=== PATIENT | male | born 1950 | race African-American/Black ===

== ENCOUNTER 2017-06-26 18:38 | Observation (INO) | payer OTHER, MEDICARE ==
[2017-06-26] MEDS ORDERED: ASPIRIN 81 MG TABLET, CHEWABLE PO ONE (18:53)
[2017-06-26 19:04] LABS: ABSOLUTE BASOPHILS # (AUTO) 0.1 10^3/uL (0.0-0.2); ABSOLUTE EOSINOPHILS # (AUTO) 0.1 10^3/uL (0.0-0.6); ABSOLUTE LYMPHOCYTES (AUTO) 4.3 10^3/uL (0.5-4.7); ABSOLUTE NEUT (AUTO) 5.5 10^3/uL (1.7-8.2); BASOPHILS % (AUTO) 0.5 % (0-2); EOSINOPHILS % (AUTO) 0.8 % (0-6); HEMATOCRIT 47.6 % (37.9-51.0); HEMOGLOBIN 15.6 g/dL (13.5-17.0); LYMPHOCYTES % (AUTO) 39.4 % (13-45); MEAN CORPUSCULAR HEMOGLOBIN 27.5 pg (27.0-33.4); MEAN CORPUSCULAR HGB CONC 32.7 g/dL (32.0-36.0); MEAN CORPUSCULAR VOLUME 84 fl (80-97); MONOCYTES % (AUTO) 8.7 % (3-13); PLATELET COUNT 227 10^3/uL (150-450); RED BLOOD COUNT 5.68 10^6/uL (4.35-5.55); RED CELL DISTRIBUTION WIDTH 15.6 % (11.5-14.0); SEGMENTED NEUTROPHILS % (AUTO) 50.6 % (42-78); TOTAL CELLS COUNTED % (AUTO) 100 %
[2017-06-26] MEDS ORDERED: DEXTROSE 5%-WATER 250 ML with NITROPRUSSIDE SODIUM 50 MG IV PRN ×2 (19:16)
[2017-06-26] MEDS ORDERED: ONDANSETRON HCL INJ/PF 4 MG/2 ML SDV IV ONE (19:16)
[2017-06-26] MEDS ORDERED: HYDRALAZINE HCL INJ/PF 20 MG/1 ML SDV IV ONE (19:16)
--- NOTE | 2017-06-26 19:16 | ER Document Report ---
ED General - General Mode of Arrival: Ambulatory Information source: Patient TRAVEL OUTSIDE OF THE [place] IN LAST 30 DAYS: No <MARCO AREVALO - Last Filed: 06/27/17 03:12> <ADARSH DAILEY - Last Filed: 06/27/17 03:39> - General Chief Complaint: High Blood Pressure Stated Complaint: VOMITING Time Seen by Provider: 06/26/17 19:03 Notes: Patient is a 66-year-old male who presents to the emergency department via EMS today with complaints of being lethargic and hypertensive on arrival according to EMS. Patient was given 10 mg of labetalol prior to arrival by EMS. EMS reports recent changes to the patients blood pressure medications. (MARCO AREVALO) - Related Data Allergies/Adverse Reactions: No Known Allergies Allergy (Verified 06/26/17 18:54) Past Medical History - General Information source: Patient - Social History Smoking Status: Unknown if Ever Smoked Cigarette use (# per day): No Frequency of alcohol use: None Drug Abuse: None Lives with: Family Family History: Reviewed & Not Pertinent Patient has suicidal ideation: No Patient has homicidal ideation: No - Past Medical History Cardiac Medical History: Reports: Hx Hypertension Surgical Hx: Negative <MARCO AREVALO - Last Filed: 06/27/17 03:12> Review of Systems - Review of Systems Constitutional: See HPI, Other - lethargic EENT: No symptoms reported Cardiovascular: See HPI, Other - hypertensive, recent blood pressure medicine changes Respiratory: No symptoms reported Gastrointestinal: No symptoms reported Genitourinary: No symptoms reported Male Genitourinary: No symptoms reported Musculoskeletal: No symptoms reported Skin: No symptoms reported Hematologic/Lymphatic: No symptoms reported Neurological/Psychological: No symptoms reported -: Yes All other systems reviewed and negative <MARCO AREVALO - Last Filed: 06/27/17 03:12> <ADARSH DAILEY - Last Filed: 06/27/17 03:39> - Review of Systems Notes: given by EMS (MARCO AREVALO) Physical Exam <MARCO AREVALO - Last Filed: 06/27/17 03:12> <ADARSH DAILEY - Last Filed: 06/27/17 03:39> - Vital signs Vitals: Resp Pulse Ox 18 92 06/26/17 18:44 06/26/17 18:44 - Notes Notes: Physical Exam: General: Drowsy but arousable. HEENT: Normocephalic. Atraumatic. PERRL. Extraocular movements intact. Oropharynx clear. Neck: Supple. Non-tender. Respiratory: No respiratory distress. Clear and equal breath sounds bilaterally. Cardiovascular: Regular rate and rhythm. Abdominal: Obese. Epigastric tenderness with palpation. No distension. Normal Bowel Sounds. Back: Non-tender. No deformity or step off. Extremities: Moves all four extremities. Upper extremities: Normal inspection. Normal ROM. Lower extremities: Normal inspection. No edema. Normal ROM. Skin: Warm. Dry. Normal color. (MARCO AREVALO) Course - Laboratory Result Diagrams: 06/26/17 18:43 06/26/17 18:43 <MARCO AREVALO - Last Filed: 06/27/17 03:12> - Laboratory Result Diagrams: 06/26/17 18:43 06/26/17 18:43 - Diagnostic Test Radiology reviewed: Image reviewed, Reports reviewed <ADARSH DAILEY - Last Filed: 06/27/17 03:39> - Re-evaluation Re-evalutation: 06/27/17 19:05 Left gaze after returning from CT 06/27/17 19:15 Mentation improving with Nicardipine 06/26/17 20:15 Answering questions, returned to cognitive baseline 06/27/17 20:43 Accepted for admission (MARCO AREVALO) Patient is a 66-year-old male who is brought in for being lethargic. Patient's blood pressure is 200s over 100s. Patient was given labetalol by EMS in route with no effect on his blood pressure. Patient is drowsy and mumbling in the room. Head CT with no acute findings. Patient was started on nicardipine drip. He was nauseated but that is resolving after Zofran and lowering his blood pressure. No acute evidence for dissection or aneurysm. MRI with no evidence for stroke. Blood work within normal limits. Patient is back to his neurologic baseline after getting his blood pressure under control. Symptoms are consistent with hypertensive encephalopathy. Patient was discussed with family in the hospital service. He will be admitted for continued management of his blood pressure. They are agreeable to this plan. Stable at the time of admission. (ADARSH DAILEY) - Vital Signs Vital signs: Temp Pulse Resp BP Pulse Ox 98 F 78 15 153/79 H 94 06/26/17 19:01 06/27/17 00:24 06/27/17 02:16 06/27/17 02:16 06/27/17 02:16 - Laboratory Laboratory results interpreted by me: 06/26/17 06/26/17 06/26/17 18:43 18:43 18:43 WBC 11.0 H RBC 5.68 H RDW 15.6 H Glucose 160 H POC Glucose Hemoglobin A1c % Lactic Acid Direct Bilirubin 0.5 H ALT 74 H Creatine Kinase 244 H TSH 0.15 L 06/26/17 06/26/17 06/26/17 18:43 18:49 22:11 WBC RBC RDW Glucose POC Glucose 136 H Hemoglobin A1c % 6.7 H Lactic Acid 3.0 H Direct Bilirubin ALT Creatine Kinase TSH Critical Care Note - Critical Care Note Total time excluding time spent on procedures (mins): 120 - Evaluation and management of altered mental status, management of hypertensive emergency/ encephalopathy, multiple re-evaluations, coordination of admission, counseling of patient and family <ADARSH DAILEY - Last Filed: 06/27/17 03:39> Discharge <MARCO AREVALO - Last Filed: 06/27/17 03:12> - Discharge Admitting Provider: [facility] Admitted: ICU <ADARSH DAILEY - Last Filed: 06/27/17 03:39> - Discharge Clinical Impression: Hypertensive encephalopathy Condition: Stable Disposition: ADMITTED INPATIENT Scribe Attestation: 06/27/17 03:38 I personally performed the services described in the documentation, reviewed and edited the documentation which was dictated to the scribe in my presence, and it accurately records my words and actions. (ADARSH DAILEY) Scribe Documentation - Scribe Written by Yareli:: Yareli Figueroa, 06/26/2017 2217 acting as scribe for :: Laurie <MARCO AREVALO - Last Filed: 06/27/17 03:12>
[2017-06-26] MEDS ORDERED: LABETALOL HCL INJ 20 MG/4 ML DISP.SYRIN IV ONE (19:18)
[2017-06-26] MEDS ORDERED: NICARDIPINE HCL RTU, ISO-OS 20 MG/200 ML RTUINJ IV PRN (19:18)
[2017-06-26 19:26] LABS: ALANINE AMINOTRANSFERASE 74 U/L (21-72); ALBUMIN 4.3 g/dL (3.5-5.0); ALKALINE PHOSPHATASE 101 U/L (38-126); ANION GAP 10 (5-19); ASPARTATE AMINO TRANSFERASE 56 U/L (17-59); BILIRUBIN,DIRECT 0.5 mg/dL (0.0-0.4); BILIRUBIN,TOTAL 0.5 mg/dL (0.2-1.3); BLOOD UREA NITROGEN 19 mg/dL (7-20); CALCIUM 9.5 mg/dL (8.4-10.2); CARBON DIOXIDE 24 mmol/L (22-30); CHLORIDE 107 mmol/L (98-107); CREATINE KINASE 244 U/L (55-170); GLUCOSE 160 mg/dL (75-110); POTASSIUM 3.9 mmol/L (3.6-5.0); SODIUM 140.5 mmol/L (137-145); TOTAL PROTEIN 7.9 g/dL (6.3-8.2)
--- NOTE | 2017-06-26 19:36 | RADIOLOGY REPORT (SQ) ---
EXAM DESCRIPTION: CT HEAD WITHOUT COMPLETED DATE/TIME: 06/26/2017 7:08 pm REASON FOR STUDY: AMS COMPARISON: None. TECHNIQUE: Axial images acquired through the brain without intravenous contrast. Images reviewed wi th bone, brain and subdural windows. Images stored on PACS. All CT scanners at this facility use dose modulation, iterative reconstruction, and/or weight based d osing when appropriate to reduce radiation dose to as low as reasonably achievable (ALARA). [facility]: Dose Right [facility]: CareDose [facility]: Dose Right [facility]: Teradose 4D [facility]: [employer] RADIATION DOSE: CT Rad equipment meets quality standard of care and radiation dose reduction techniq ues were employed. CTDIvol: 64.6 mGy. DLP: 1034 mGy-cm. mGy. LIMITATIONS: None. FINDINGS: VENTRICLES: Normal size and contour. CEREBRUM: No masses. No hemorrhage. No midline shift. No evidence for acute infarction. Normal gra y/white matter differentiation. No areas of low density in the white matter. CEREBELLUM: No masses. No hemorrhage. No alteration of density. No evidence for acute infarction. EXTRAAXIAL SPACES: No fluid collections. No masses. ORBITS AND GLOBE: No intra- or extraconal masses. Normal contour of globe without masses. CALVARIUM: No fracture. PARANASAL SINUSES: No fluid or mucosal thickening. SOFT TISSUES: No mass or hematoma. OTHER: No other significant finding. IMPRESSION: NORMAL BRAIN CT WITHOUT CONTRAST. EVIDENCE OF ACUTE STROKE: NO. COMMENT: Quality ID # 436: Final reports with documentation of one or more dose reduction techniques (e.g., Automated exposure control, adjustment of the mA and/or kV according to patient size, use of iterative reconstruction technique) TECHNICAL DOCUMENTATION: JOB ID: [id number] [employer]- All Rights Reserved Reading location - IP/workstation name: [email or web address]
--- NOTE | 2017-06-26 19:37 | RADIOLOGY REPORT (SQ) ---
EXAM DESCRIPTION: CHEST SINGLE VIEW COMPLETED DATE/TIME: 06/26/2017 7:15 pm REASON FOR STUDY: HTN COMPARISON: 06/26/2017 EXAM PARAMETERS: NUMBER OF VIEWS: One view. TECHNIQUE: Single frontal radiographic view of the chest acquired. RADIATION DOSE: NA LIMITATIONS: None. FINDINGS: LUNGS AND PLEURA: Low lung volumes are present. There is no infiltrate or effusion. MEDIASTINUM AND HILAR STRUCTURES: No masses. Contour normal. HEART AND VASCULAR STRUCTURES: Heart normal in size. Normal vasculature. BONES: No acute findings. HARDWARE: None in the chest. OTHER: No other significant finding. IMPRESSION: Low lung volumes. No acute cardiopulmonary disease. TECHNICAL DOCUMENTATION: JOB ID: [id number] [employer]- All Rights Reserved Reading location - IP/workstation name: [email or web address]
[2017-06-26 19:38] LABS: TROPONIN I < 0.012 ng/mL
--- NOTE | 2017-06-26 19:51 | EKG REPORT ---
SEVERITY:- BORDERLINE ECG - SINUS RHYTHM PROBABLE LEFT ATRIAL ABNORMALITY : Confirmed by: Eladio Freedman MD 26-Jun-2017 19:50:48
[2017-06-26 20:51] LABS: INTERNATIONAL RATION (INR) 0.92
--- NOTE | 2017-06-26 22:14 | RADIOLOGY REPORT (SQ) ---
EXAM DESCRIPTION: CTA CHEST; CTA ABDOMEN/PELVIS W WO COMPLETED DATE/TIME: 06/26/2017 9:46 pm REASON FOR STUDY: evaluate for dissection, AMS, pain BP 220/110; evaluate for dissection, AMS, abd pain, BP 220/110 COMPARISON: AP chest 06/26/2017 CONTRAST TYPE AND DOSE: contrast/concentration: Isovue 370.00 mg/ml; Total Contrast Delivered: 111.6 ml; Total Saline Delivered: 70.1 ml RENAL FUNCTION: Creatinine 1.1 TECHNIQUE: CT angio of the chest performed using helical scanning technique with dynamic intravenous contrast injection. Images reviewed with lung, soft tissue and bone windows. Reconstructed coronal and sagittal MPR images reviewed. All images stored on PACS. CT angio of the abdomen and pelvis performed with intravenous and without oral contrastusing helical scanning technique with dynamic intravenous contrast injection. Images reviewed with lung, soft tiss ue and bone windows. Reconstructed coronal and sagittal MPR images reviewed. Delayed images for oswaldo luation of the urinary system also acquired and evaluated. All images stored on PACS. All CT scanners at this facility use dose modulation, iterative reconstruction, and/or weight based d osing when appropriate to reduce radiation dose to as low as reasonably achievable (ALARA). [facility]: Dose Right [facility]: CareDose [facility]: Dose Right [facility]: Teradose 4D [facility]: [employer] RADIATION DOSE: CT Rad equipment meets quality standard of care and radiation dose reduction techniq ues were employed. CTDIvol: 15.8 mGy. DLP: 1064 mGy-cm. . LIMITATIONS: None. FINDINGS: CHEST: LUNGS AND PLEURA: No opacities, nodules, masses. No pneumothorax. No effusions. HILAR AND MEDIASTINAL STRUCTURES: No identified masses or abnormal nodes. HEART AND VASCULAR STRUCTURES: No thoracic aortic aneurysm or dissection. No cardiomegaly. However there is circumferential thickening of the left ventricular myocardium worrisome for left ventricular hypertrophy, best shown on axial image 63. No acute pulmonary emboli. No pericardial effusion. HARDWARE: None. THYROID AND OTHER SOFT TISSUES: No masses. No adenopathy. BONES: No significant finding. OTHER: Small retrocardiac hiatal hernia. ABDOMEN AND PELVIS: LIVER: Normal size. No masses. No dilated ducts. SPLEEN: Normal size. No focal lesions. PANCREAS: No masses. No significant calcifications. No adjacent inflammation or peripancreatic fluid collections. Pancreatic duct not dilated. GALLBLADDER: No identified stones by CT criteria. No inflammatory changes to suggest cholecystitis. ADRENAL GLANDS: No significant masses or asymmetry. RIGHT KIDNEY AND URETER: No solid masses. 3 cm posterior right upper pole renal cortical cyst. No s ignificant calcification. No hydronephrosis or hydroureter. LEFT KIDNEY AND URETER: No solid masses. No significant calcification. No hydronephrosis or hydrouret er. AORTA AND VESSELS: No aneurysm. No dissection. Renal arteries, SMA, celiac without stenosis. RETROPERITONEUM: No retroperitoneal adenopathy, hemorrhage or masses. BOWEL AND PERITONEAL CAVITY: No masses or inflammatory changes. No free fluid or peritoneal masses. APPENDIX: Not identified. ABDOMINAL WALL: No masses. No hernias. PELVIS: No mass or free fluid. Normal bladder. BONES: No significant or acute findings. OTHER: No other significant finding. IMPRESSION: No CT angio evidence of acute pulmonary emboli or thoracic aortic dissection. Left ventricular hypertrophy. Small hiatal hernia. No CT angio evidence of abdominal aortic dissection or significant visceral artery stenosis. No acut e changes in the abdomen and pelvis NORMAL CT OF THE ABDOMEN AND PELVIS WITH ORAL AND INTRAVENOUS CONTRAST. TECHNICAL DOCUMENTATION: JOB ID: [id number] Quality ID # [id number]: Final reports with documentation of one or more dose reduction techniques (e.g., Au tomated exposure control, adjustment of the mA and/or kV according to patient size, use of iterative reconstruction technique) 2010 [employer]- All Rights Reserved Reading location - IP/workstation name: [email or web address]
--- NOTE | 2017-06-26 23:18 | RADIOLOGY REPORT (SQ) ---
EXAM DESCRIPTION: MRI HEAD WITHOUT CLINICAL HISTORY: 66 years Male, BP 220/110, AMS, evaluate for CVA COMPARISON: None. TECHNIQUE: Conventional noncontrast MRI of the brain. FINDINGS: Brain parenchyma appears intact. No mass, mass effect, or midline shift. No evidence of ischemia, infarct, or hemorrhage. Extra-axial structures are unremarkable. IMPRESSION: Normal MRI of the brain.
[2017-06-27] MEDS ORDERED: NITROGLYCERIN 10 MG (0.4 MG/HR) PATCH.TD24 TD ONE ×2 (00:21→00:24)
[2017-06-27] MEDS ORDERED: ACETAMINOPHEN 325 MG TABLET PO PRN (00:21)
[2017-06-27] MEDS ORDERED: HYDRALAZINE HCL INJ/PF 20 MG/1 ML SDV IV PRN (00:21)
[2017-06-27] MEDS ORDERED: ONDANSETRON HCL INJ/PF 4 MG/2 ML SDV IV PRN (00:21)
[2017-06-27] MEDS ORDERED: LOSARTAN POTASSIUM 50 MG TABLET PO ONE (00:25)
[2017-06-27] MEDS: HEPARIN SOD (PORCINE) 5,000 UNIT/ML 1 ML SYRINGE SUBCUT SCH ×3 (05:30→21:43)
--- NOTE | 2017-06-27 05:33 | PDOC H&P ---
History of Present Illness Admission Date/PCP: 06/27/17 00:02 Patient complains of: Confusion History of Present Illness: REBECCA CAMPOVERDE JR is a 66 year old male with a past medical history of obstructive sleep apnea, hypothyroidism, BPH and hypertension. Patient presents after becoming confused with dizziness and nausea occurring while driving. He called family and was brought to the emergency room and found to have a blood pressure of 220/110 and pulse in the 90s. He was placed on nicardipine, CT and MRI of the head were unremarkable and as his blood pressure corrected his mental status improved to baseline without deficit. Patient admits recent change in his blood pressure medication and review of his medication bag suggests he is now longer taking doxazosin as directed. He currently denies chest pain, palpations, nausea vomiting or headache. He is titrated from nicardipine to IV hydralazine and nitro patch. Past Medical History Cardiac Medical History: Reports: Hypertension Pulmonary Medical History: Reports: Sleep Apnea Endocrine Medical History: Reports: Hyperthyroidism Past Surgical History Past Surgical History: Reports: Other - Iodine iradiated thyroid. Social History Information Source: Patient Lives with: Family Smoking Status: Unknown if Ever Smoked Frequency of Alcohol Use: None Drugs: None - Advance Directive Resuscitation Status: Full Code Family History Family History: CAD, CVA Parental Family History Reviewed: Yes Children Family History Reviewed: Yes Sibling(s) Family History Reviewed.: Yes Medication/Allergy Allergies/Adverse Reactions: No Known Allergies Allergy (Verified 06/26/17 18:54) Review of Systems Constitutional: ABSENT: chills, fever(s), headache(s), weight gain, weight loss Eyes: ABSENT: visual disturbances Ears: ABSENT: hearing changes Cardiovascular: ABSENT: chest pain, dyspnea on exertion, edema, orthropnea, palpitations Respiratory: ABSENT: cough, hemoptysis Gastrointestinal: ABSENT: abdominal pain, constipation, diarrhea, hematemesis, hematochezia, nausea, vomiting Genitourinary: ABSENT: dysuria, hematuria Musculoskeletal: ABSENT: joint swelling Integumentary: ABSENT: rash, wounds Neurological: ABSENT: abnormal gait, abnormal speech, confusion, dizziness, focal weakness, syncope Psychiatric: ABSENT: anxiety, depression, homidical ideation, suicidal ideation Endocrine: ABSENT: cold intolerance, heat intolerance, polydipsia, polyuria Hematologic/Lymphatic: ABSENT: easy bleeding, easy bruising Physical Exam Vital Signs: Temp Pulse Resp BP Pulse Ox 98 F 74 15 138/80 H 94 06/26/17 19:01 06/27/17 03:00 06/27/17 04:15 06/27/17 04:15 06/27/17 04:15 General appearance: PRESENT: no acute distress, well-developed, well-nourished Head exam: PRESENT: atraumatic, normocephalic Eye exam: PRESENT: conjunctiva pink, EOMI, PERRLA. ABSENT: scleral icterus Ear exam: PRESENT: normal external ear exam Mouth exam: PRESENT: moist, tongue midline Neck exam: ABSENT: carotid bruit, JVD, lymphadenopathy, thyromegaly Respiratory exam: PRESENT: clear to auscultation dallin. ABSENT: rales, rhonchi, wheezes Cardiovascular exam: PRESENT: gallop, RRR. ABSENT: diastolic murmur, rubs, systolic murmur Pulses: PRESENT: normal dorsalis pedis pul Vascular exam: PRESENT: normal capillary refill GI/Abdominal exam: PRESENT: normal bowel sounds, soft. ABSENT: distended, guarding, mass, organolmegaly, rebound, tenderness Rectal exam: PRESENT: deferred Extremities exam: PRESENT: full ROM. ABSENT: calf tenderness, clubbing, pedal edema Neurological exam: PRESENT: alert, awake, oriented to person, oriented to place , oriented to time, oriented to situation, CN II-XII grossly intact. ABSENT: motor sensory deficit Psychiatric exam: PRESENT: appropriate affect, normal mood. ABSENT: homicidal ideation, suicidal ideation Skin exam: PRESENT: dry, intact, warm. ABSENT: cyanosis, rash Results Laboratory Results: 06/27/17 01:53 Lactic Acid 2.0 Impressions: Head CT 06/26/17 00:00 IMPRESSION: NORMAL BRAIN CT WITHOUT CONTRAST. EVIDENCE OF ACUTE STROKE: NO. Chest X-Ray 06/26/17 18:54 IMPRESSION: Low lung volumes. No acute cardiopulmonary disease. Abdomen/Pelvis CTA 06/26/17 19:26 IMPRESSION: No CT angio evidence of acute pulmonary emboli or thoracic aortic dissection. Left ventricular hypertrophy. Small hiatal hernia. No CT angio evidence of abdominal aortic dissection or significant visceral artery stenosis. No acute changes in the abdomen and pelvis NORMAL CT OF THE ABDOMEN AND PELVIS WITH ORAL AND INTRAVENOUS CONTRAST. Chest/Abdomen CTA 06/26/17 19:26 IMPRESSION: No CT angio evidence of acute pulmonary emboli or thoracic aortic dissection. Left ventricular hypertrophy. Small hiatal hernia. No CT angio evidence of abdominal aortic dissection or significant visceral artery stenosis. No acute changes in the abdomen and pelvis NORMAL CT OF THE ABDOMEN AND PELVIS WITH ORAL AND INTRAVENOUS CONTRAST. Head MRI 06/26/17 21:23 IMPRESSION: Normal MRI of the brain. Assessment & Plan - Diagnosis (1) Hypertensive emergency Is this a current diagnosis for this admission?: Yes Plan: IMCU admission, titration from Cardene to hydralazine, nitroglycerin and home regiment. Education ordered (2) Obstructive sleep apnea Is this a current diagnosis for this admission?: Yes Plan: CPAP. (3) BPH (benign prostatic hyperplasia) Is this a current diagnosis for this admission?: Yes Plan: Doxazosin 2 mg every 12 hours. And education (4) Hypertensive encephalopathy Is this a current diagnosis for this admission?: Yes Plan: Patient returned to baseline, education - Time Time Spent: 50 to 70 Minutes - Inpatient Certification Medical Necessity: Need Close Monitoring Due to Risk of Patient Decompensation
[2017-06-27] MEDS ORDERED: ONDANSETRON HCL INJ/PF 4 MG/2 ML SDV ONE (05:45)
[2017-06-27] MEDS ORDERED: HEPARIN SOD (PORCINE) 5,000 UNIT/ML 1 ML SYRINGE SUBCUT SCH (06:00)
[2017-06-27 06:04] LABS: URINE AMPHETAMINES SCREEN NEGATIVE; URINE BARBITURATES SCREEN NEGATIVE; URINE BENZODIAZEPINES SCREEN NEGATIVE; URINE COCAINE SCREEN NEGATIVE; URINE MARIJUANA (THC) SCREEN NEGATIVE; URINE METHADONE SCREEN NEGATIVE; URINE PHENCYCLIDINE SCREEN NEGATIVE
[2017-06-27 06:25] LABS: ABSOLUTE LYMPHOCYTES (AUTO) 2.8 10^3/uL (0.5-4.7); ABSOLUTE MONOCYTES (AUTO) 1.3 10^3/uL (0.1-1.4); ABSOLUTE NEUT (AUTO) 7.5 10^3/uL (1.7-8.2); BASOPHILS % (AUTO) 0.4 % (0-2); EOSINOPHILS % (AUTO) 0.2 % (0-6); HEMATOCRIT 45.5 % (37.9-51.0); MEAN CORPUSCULAR HEMOGLOBIN 27.6 pg (27.0-33.4); MEAN CORPUSCULAR HGB CONC 33.1 g/dL (32.0-36.0); MEAN CORPUSCULAR VOLUME 84 fl (80-97); PLATELET COUNT 215 10^3/uL (150-450); RED BLOOD COUNT 5.45 10^6/uL (4.35-5.55); RED CELL DISTRIBUTION WIDTH 15.6 % (11.5-14.0); SEGMENTED NEUTROPHILS % (AUTO) 64.4 % (42-78); TOTAL CELLS COUNTED % (AUTO) 100 %; WHITE BLOOD COUNT 11.6 10^3/uL (4.0-10.5)
[2017-06-27 06:48] LABS: ANION GAP 13 (5-19); BLOOD UREA NITROGEN 18 mg/dL (7-20); CALCIUM 9.7 mg/dL (8.4-10.2); CARBON DIOXIDE 25 mmol/L (22-30); CHLORIDE 102 mmol/L (98-107); CREATINE KINASE 269 U/L (55-170); GLUCOSE 127 mg/dL (75-110); POTASSIUM 4.5 mmol/L (3.6-5.0); SODIUM 139.8 mmol/L (137-145)
[2017-06-27] MEDS: METOPROLOL TARTRATE 100 MG TABLET PO SCH ×2 (10:40→21:40)
[2017-06-27] MEDS: DOCUSATE SODIUM 100 MG CAPSULE PO SCH ×2 (10:43→18:50)
[2017-06-27] MEDS: DOXAZOSIN MESYLATE 2 MG TABLET PO SCH ×2 (10:43→21:40)
--- NOTE | 2017-06-27 18:05 | PDOC PROGRESS REPORT ---
Subjective Progress Note for:: 06/27/17 Subjective:: The patient is a 66-year-old male with a past medical history of obstructive sleep apnea, hypothyroidism, BPH and hypertension who was admitted on 06/26/17 for hypertensive emergency resulting in confusion. The patient is seen on morning rounds with family members present. He is found in the emergency department resting comfortably in bed on room air. The patient 's mental status has improved overnight and the family reports that he is no longer confused, acting per his normal personality with the exception of fatigue. Patient does not remember the events of the previous day. He denies headache, dizziness, chest pain, palpitations, dyspnea and orthopnea. They have no new questions or concerns at this time and are hopeful for a quick discharge to home once his blood pressure becomes better controlled. Reason For Visit: HYPERTENSION EMERGENCY Physical Exam Vital Signs: Temp Pulse Resp BP Pulse Ox 98.4 F 73 14 169/86 H 96 06/27/17 14:35 06/27/17 15:17 06/27/17 14:35 06/27/17 14:35 06/27/17 14:35 Intake & Output 06/26/17 06/27/17 06/28/17 06:59 06:59 06:59 Weight 104 kg General appearance: PRESENT: no acute distress, cooperative, obese, well- developed, well-nourished Head exam: PRESENT: atraumatic, normocephalic Eye exam: PRESENT: conjunctiva pink, EOMI, PERRLA. ABSENT: scleral icterus Ear exam: PRESENT: normal external ear exam Mouth exam: PRESENT: moist, tongue midline Neck exam: ABSENT: carotid bruit, JVD, lymphadenopathy, thyromegaly Respiratory exam: PRESENT: clear to auscultation dallin, symmetrical, unlabored. ABSENT: rales, rhonchi, wheezes Cardiovascular exam: PRESENT: RRR, +S1, +S2. ABSENT: diastolic murmur, rubs, systolic murmur Pulses: PRESENT: normal dorsalis pedis pul Vascular exam: PRESENT: normal capillary refill GI/Abdominal exam: PRESENT: normal bowel sounds, soft. ABSENT: distended, guarding, mass, organolmegaly, rebound, tenderness Rectal exam: PRESENT: deferred Extremities exam: PRESENT: full ROM. ABSENT: calf tenderness, clubbing, pedal edema Neurological exam: PRESENT: alert, awake, oriented to person, oriented to place , oriented to time, oriented to situation, CN II-XII grossly intact. ABSENT: motor sensory deficit Psychiatric exam: PRESENT: appropriate affect, normal mood. ABSENT: homicidal ideation, suicidal ideation Skin exam: PRESENT: dry, intact, warm. ABSENT: cyanosis, rash Results Laboratory Results: 06/27/17 05:30 06/27/17 05:30 06/27/17 06/27/17 06/27/17 01:53 05:30 05:30 WBC 11.6 H RBC 5.45 Hgb 15.0 Hct 45.5 MCV 84 MCH 27.6 MCHC 33.1 RDW 15.6 H Plt Count 215 Seg Neutrophils % 64.4 Lymphocytes % 24.0 Monocytes % 11.0 Eosinophils % 0.2 Basophils % 0.4 Absolute Neutrophils 7.5 Absolute Lymphocytes 2.8 Absolute Monocytes 1.3 Absolute Eosinophils 0.0 Absolute Basophils 0.0 Sodium 139.8 Potassium 4.5 Chloride 102 Carbon Dioxide 25 Anion Gap 13 BUN 18 Creatinine 1.07 Est GFR ( Amer) > 60 Est GFR (Non-Af Amer) > 60 Glucose 127 H Lactic Acid 2.0 Calcium 9.7 06/27/17 06/27/17 05:30 05:30 Creatine Kinase 269 H Troponin I < 0.012 Impressions: Head CT 06/26/17 00:00 IMPRESSION: NORMAL BRAIN CT WITHOUT CONTRAST. EVIDENCE OF ACUTE STROKE: NO. Chest X-Ray 06/26/17 18:54 IMPRESSION: Low lung volumes. No acute cardiopulmonary disease. Abdomen/Pelvis CTA 06/26/17 19:26 IMPRESSION: No CT angio evidence of acute pulmonary emboli or thoracic aortic dissection. Left ventricular hypertrophy. Small hiatal hernia. No CT angio evidence of abdominal aortic dissection or significant visceral artery stenosis. No acute changes in the abdomen and pelvis NORMAL CT OF THE ABDOMEN AND PELVIS WITH ORAL AND INTRAVENOUS CONTRAST. Chest/Abdomen CTA 06/26/17 19:26 IMPRESSION: No CT angio evidence of acute pulmonary emboli or thoracic aortic dissection. Left ventricular hypertrophy. Small hiatal hernia. No CT angio evidence of abdominal aortic dissection or significant visceral artery stenosis. No acute changes in the abdomen and pelvis NORMAL CT OF THE ABDOMEN AND PELVIS WITH ORAL AND INTRAVENOUS CONTRAST. Head MRI 06/26/17 21:23 IMPRESSION: Normal MRI of the brain. Assessment & Plan - Diagnosis (1) Hypertensive emergency Is this a current diagnosis for this admission?: Yes Plan: The patient was initially admitted with blood pressures of 220/100. Serial troponins are negative. Lactic acid has returned to normal Creatinine is normal He was initially on a Cardene drip but has now been transitioned to p.o. antihypertensives. The patient is admitted to [facility] on continuous cardiac telemetry. We will continue the patient's home medication losartan 100 mg daily Continue metoprolol 100 mg p.o. twice daily IV hydralazine is available as needed for blood pressure Cardiac diet. Will ask registered dietitian and patient educator to meet with the patient. (2) Hypertensive encephalopathy Is this a current diagnosis for this admission?: Yes Plan: Resolved. As part of the initial workup, the patient underwent a head CT, head MRI, and CTA of the abdomen all of which were benign. Plan as above. (3) Obstructive sleep apnea Is this a current diagnosis for this admission?: Yes Plan: CPAP nightly and when napping (4) BPH (benign prostatic hyperplasia) Is this a current diagnosis for this admission?: Yes Plan: Doxazosin 2 mg twice daily - Time Time Spent with patient: 25-34 minutes Medications reviewed and adjusted accordingly: Yes Anticipated discharge: Home Within: within 24 hours
[2017-06-28 05:51] LABS: ANION GAP 9 (5-19); BLOOD UREA NITROGEN 20 mg/dL (7-20); CALCIUM 9.7 mg/dL (8.4-10.2); CARBON DIOXIDE 27 mmol/L (22-30); CHLORIDE 104 mmol/L (98-107); CREATINE KINASE 193 U/L (55-170); GLUCOSE 122 mg/dL (75-110); POTASSIUM 4.4 mmol/L (3.6-5.0)
[2017-06-28] MEDS ORDERED: LEVOTHYROXINE SODIUM 0.05 MG TABLET PO SCH (06:00)
[2017-06-28] MEDS: HEPARIN SOD (PORCINE) 5,000 UNIT/ML 1 ML SYRINGE SUBCUT SCH (06:28)
[2017-06-28] MEDS: DOCUSATE SODIUM 100 MG CAPSULE PO SCH (08:59)
[2017-06-28] MEDS: DOXAZOSIN MESYLATE 2 MG TABLET PO SCH (08:59)
[2017-06-28] MEDS: METOPROLOL TARTRATE 100 MG TABLET PO SCH (08:59)
[2017-06-28 09:44] VITALS: BP 169/86
[2017-06-28] MEDS ORDERED: LOSARTAN POTASSIUM 50 MG TABLET PO SCH (10:00)
[2017-06-28] MEDS ORDERED: ASPIRIN 81 MG TABLET, ENT COATED PO SCH (10:00)
--- NOTE | 2017-06-28 15:45 | PDOC DISCHARGE SUMMARY ---
General - Admit/Disc Date/PCP Admission Date/Primary Care Provider: 06/27/17 00:02 Discharge Date: 06/28/17 - Discharge Diagnosis (1) Hypertensive emergency Is this a current diagnosis for this admission?: Yes (2) Hypertensive encephalopathy Is this a current diagnosis for this admission?: Yes (3) Obstructive sleep apnea Is this a current diagnosis for this admission?: Yes (4) BPH (benign prostatic hyperplasia) Is this a current diagnosis for this admission?: Yes - Additional Information Resuscitation Status: Full Code Discharge Diet: Cardiac Discharge Activity: Activity As Tolerated, Slowly Increase Activity, Walk Frequently Prescriptions: Doxazosin Mesylate [Cardura 2 mg Tablet] 2 mg PO Q12 #60 tablet Levothyroxine Sodium [Synthroid 0.05 mg Tablet] 0.25 mg PO Q6AM #30 tablet Home Medications: Aspirin [Lo-Dose Aspirin EC] 81 mg PO DAILY 06/27/17 Losartan Potassium [Cozaar 100 mg Tablet] 100 mg PO DAILY 06/27/17 Metoprolol Tartrate 100 mg PO Q12H 06/27/17 Naproxen 500 mg PO Q12HP PRN 06/27/17 Massey-3S/Dha/Epa/Fish Oil [Fish Oil 1,200 mg Softgel] 1 each PO DAILY 06/27/17 Acetaminophen [Tylenol 325 mg Tablet] 650 mg PO Q6HP PRN tablet 06/28/17 Doxazosin Mesylate [Cardura 2 mg Tablet] 2 mg PO Q12 #60 tablet 06/28/17 Levothyroxine Sodium [Synthroid 0.05 mg Tablet] 0.25 mg PO Q6AM #30 tablet 06/28 History of Present Illness History of Present Illness: REBECCA CAMPOVERDE JR is a 66 year old male with a past medical history of obstructive sleep apnea, hypothyroidism, BPH and hypertension. Patient presents after becoming confused with dizziness and nausea occurring while driving. He called family and was brought to the emergency room and found to have a blood pressure of 220/110 and pulse in the 90s. He was placed on nicardipine, CT and MRI of the head were unremarkable and as his blood pressure corrected his mental status improved to baseline without deficit. Patient admits recent change in his blood pressure medication and review of his medication bag suggests he is now longer taking doxazosin as directed. He currently denies chest pain, palpations, nausea vomiting or headache. He is titrated from nicardipine to IV hydralazine and nitro patch. Hospital Course Hospital Course: The patient was admitted under observation on continuous cardiac telemetry. Initial evaluation included a Head CT and Head MRI, both of which were benign and did not demonstrate evidence of acute CVA. Chest xray did not demonstrate acute cardiopulmonary disease. Chest and Abdominal CTA which were both normal. The patient's thyroid function was evaluated to be low at 0.15. He was provided a lower dose of levothyroxin; decreased to 250 mcg from 300 mcg. The patient was initially placed on a Cardene drip and a nitroglycerine patch for blood pressure control with subsequent improvement in the patient's mentation. The nitro patch was able to be removed shortly thereafter and he was transitioned to p.o losartan and metoprolol. He was additionally placed on doxazosin for BPH. The patient was educated on the importance of a cardiac diet and medication compliance. He was provided information on stroke signs/symptoms. At time of discharge, the patient is in stable condition. He is provided prescriptions for lower dose levothyroxine and doxazosine. He is encouraged to follow up with his primary care provider within 1 week. Physical Exam Vital Signs: Temp Pulse Resp BP Pulse Ox 97.3 F 61 18 169/86 H 95 06/28/17 09:42 06/28/17 09:42 06/28/17 09:42 06/28/17 09:42 06/28/17 09:42 Intake & Output 06/27/17 06/28/17 06/29/17 06:59 06:59 06:59 Intake Total 992 Balance 992 Weight 104.9 kg General appearance: PRESENT: no acute distress, obese, well-developed, well- nourished Head exam: PRESENT: atraumatic, normocephalic Eye exam: PRESENT: conjunctiva pink, EOMI, PERRLA. ABSENT: scleral icterus Ear exam: PRESENT: normal external ear exam Mouth exam: PRESENT: moist, tongue midline Neck exam: ABSENT: carotid bruit, JVD, lymphadenopathy, thyromegaly Respiratory exam: PRESENT: clear to auscultation dallin, symmetrical, unlabored. ABSENT: rales, rhonchi, wheezes Cardiovascular exam: PRESENT: RRR, +S1, +S2. ABSENT: diastolic murmur, rubs, systolic murmur Pulses: PRESENT: normal dorsalis pedis pul Vascular exam: PRESENT: normal capillary refill GI/Abdominal exam: PRESENT: normal bowel sounds, soft. ABSENT: distended, guarding, mass, organolmegaly, rebound, tenderness Rectal exam: PRESENT: deferred Extremities exam: PRESENT: full ROM. ABSENT: calf tenderness, clubbing, pedal edema Neurological exam: PRESENT: alert, awake, oriented to person, oriented to place , oriented to time, oriented to situation, CN II-XII grossly intact. ABSENT: motor sensory deficit Psychiatric exam: PRESENT: appropriate affect, normal mood. ABSENT: homicidal ideation, suicidal ideation Skin exam: PRESENT: dry, intact, warm. ABSENT: cyanosis, rash Results Laboratory Results: 06/27/17 05:30 06/28/17 04:06 06/28/17 04:06 Sodium 140.0 Potassium 4.4 Chloride 104 Carbon Dioxide 27 Anion Gap 9 BUN 20 Creatinine 1.12 Est GFR ( Amer) > 60 Est GFR (Non-Af Amer) > 60 Glucose 122 H Calcium 9.7 06/27/17 06/27/17 06/28/17 05:30 05:30 04:06 Creatine Kinase 269 H 193 H Troponin I < 0.012 Impressions: Head CT 06/26/17 00:00 IMPRESSION: NORMAL BRAIN CT WITHOUT CONTRAST. EVIDENCE OF ACUTE STROKE: NO. Chest X-Ray 06/26/17 18:54 IMPRESSION: Low lung volumes. No acute cardiopulmonary disease. Abdomen/Pelvis CTA 06/26/17 19:26 IMPRESSION: No CT angio evidence of acute pulmonary emboli or thoracic aortic dissection. Left ventricular hypertrophy. Small hiatal hernia. No CT angio evidence of abdominal aortic dissection or significant visceral artery stenosis. No acute changes in the abdomen and pelvis NORMAL CT OF THE ABDOMEN AND PELVIS WITH ORAL AND INTRAVENOUS CONTRAST. Chest/Abdomen CTA 06/26/17 19:26 IMPRESSION: No CT angio evidence of acute pulmonary emboli or thoracic aortic dissection. Left ventricular hypertrophy. Small hiatal hernia. No CT angio evidence of abdominal aortic dissection or significant visceral artery stenosis. No acute changes in the abdomen and pelvis NORMAL CT OF THE ABDOMEN AND PELVIS WITH ORAL AND INTRAVENOUS CONTRAST. Head MRI 06/26/17 21:23 IMPRESSION: Normal MRI of the brain. Qualifiers - * PATEINT BEING DISCHARGED WITH ANY OF THE FOLLOWING DIAGNOSIS?: No
== END 2017-06-28 10:50 | disposition home or self-care (01) ==
LOC: ER 18:38 → INTOOBSV 06-27 00:02 → EH 06-27 00:02 → 5 06-27 12:41
PROVIDERS: ADMIT Internal Medicine; ATTEND Internal Medicine
DX: I16.1 Hypertensive emergency (principal); I67.4 Hypertensive encephalopathy; G47.33 Obstructive sleep apnea (adult) (pediatric); N40.0 Benign prostatic hyperplasia without lower urinary tract symptoms; E03.9 Hypothyroidism, unspecified; Z79.899 Other long term (current) drug therapy; Z79.82 Long term (current) use of aspirin; Z98.890 Other specified postprocedural states; Z82.49 Family history of ischemic heart disease and other diseases of the circulatory system; Z82.3 Family history of stroke
CPT/HCPCS: 93005; 99291; 99292; 96375; 96365; 96366; 36415 ×2; 82553; 82962; 82550 ×2; 83690; 84443; 85025; 85610; 85730; 80048 ×2; 80053; 84484; 80307; 83036; 83605; 70551; 71045; 70450; 71275; 74174; 93010; 94660 ×2; J1644; J3490 ×4; J2405 ×2